=== PATIENT | male | born 1995 | race Caucasian/White ===

== ENCOUNTER 2018-12-08 18:51 | Emergency (ER) | payer OTHER, SELFPAY ==
--- NOTE | 2018-12-08 19:19 | RAD ---
RIGHT ARM TWO VIEWS: History: Mower fell on right arm. Comparison: None. FINDINGS: No fracture. No cortical irregularity or periosteal reaction. IMPRESSION: No fracture. POS: PPP
[2018-12-08] MEDS ORDERED: Ibuprofen 800 MG TAB ONE (19:31)
[2018-12-08] MEDS ORDERED: Acetaminophen 500 MG TAB ONE (19:32)
== END 2018-12-08 19:40 | disposition home or self-care (01) ==
LOC: MADERS 18:51
DX: S50.11XA Contusion of right forearm, initial encounter (principal); W20.8XXA Other cause of strike by thrown, projected or falling object, initial encounter

== ENCOUNTER 2021-09-11 08:28 | Emergency (ER) | payer OTHER, SELFPAY ==
[2021-09-12 15:08] LABS: SARS-CoV-2 PCR by NAA Not Detected (NotDetected)
== END 2021-09-11 08:49 | disposition home or self-care (01) ==
LOC: MADERS 08:28
DX: J06.9 Acute upper respiratory infection, unspecified (principal); Z20.822 Contact with and (suspected) exposure to COVID-19; F17.210 Nicotine dependence, cigarettes, uncomplicated
CPT/HCPCS: 99283; U0003; U0005

== ENCOUNTER 2022-10-31 20:58 | Emergency (ER) | payer SELFPAY | END 2022-10-31 22:49 | disposition home or self-care (01) | LOC: MADERS 20:58 | DX: J01.90 Acute sinusitis, unspecified (principal); F17.210 Nicotine dependence, cigarettes, uncomplicated | CPT/HCPCS: 99283 ==

== ENCOUNTER 2022-11-01 07:17 | Emergency (ER) | payer SELFPAY ==
[2022-11-01] MEDS ORDERED: Ketorolac Tromethamine 30 MG/ML VIAL ONE (07:48)
[2022-11-01 08:03] LABS: #Basophils 0.1 thou/uL (0.0-0.2); #Eosinphils 0.2 thou/uL (0.0-0.7); #Lymphocytes 2.3 thou/uL (1.20-3.40); #Monocytes 1.2 thou/uL (0.11-0.59); #Neutrophils 7.8 thou/uL (1.40-6.50); %Basophils 0.7 % (0.0-1.0); %Lymphocytes 19.8 % (21.0-51.0); %Neutrophils 67.5 % (42.0-75.0); Hemoglobin 14.7 g/dL (14.0-18.0); Mean Corpuscular Hemoglobin 30.3 pg (27.0-31.0); Mean Corpuscular Volume 84.1 fl (78.0-98.0); Mean Platelet Volume 6.7 fL (7.4-10.4); Platelet Count 278 10x3/uL (130-400); RBC Distribution Width 10.5 % (11.5-14.5); Red Blood Cell (RBC) Count 4.86 mill/uL (4.70-6.10); White Blood Cell (WBC) Count 11.5 10x3/uL (4.8-10.8)
[2022-11-01 08:16] LABS: ALT (SGPT) 62 U/L (8-55); AST (SGOT) 50 U/L (5-34); Albumin 4.5 g/dL (3.5-5.0); Alkaline Phosphatase 70 U/L (40-110); Anion Gap 15 mmol/L (10-20); BUN (Urea Nitrogen) 12 mg/dL (8.9-20.6); Bilirubin, Total 0.6 mg/dL (0.2-1.2); Calc. Creatinine Clearance 0 mL/min (70-130); Calcium 9.1 mg/dL (7.8-10.44); Carbon Dioxide 22 mmol/L (22-29); Chloride 108 mmol/L (98-107); Estimated GFR 102; Globulin 2.5 g/dL (2.4-3.5); Glucose 131 mg/dL (70-105); Potassium 3.8 mmol/L (3.5-5.1); Sodium 141 mmol/L (136-145)
[2022-11-01] MEDS ORDERED: predniSONE 20 MG TAB ONE (10:31)
[2022-11-01] MEDS ORDERED: diphenhydrAMINE 25 MG CAP ONE (10:31)
[2022-11-01] MEDS ORDERED: Famotidine 20 MG TAB ONE (10:31)
== END 2022-11-01 10:59 | disposition home or self-care (01) ==
LOC: MADERS 07:17
DX: T78.40XA Allergy, unspecified, initial encounter (principal); J06.9 Acute upper respiratory infection, unspecified; D72.829 Elevated white blood cell count, unspecified; F17.210 Nicotine dependence, cigarettes, uncomplicated
CPT/HCPCS: 70360; 70491; 80053; 85025; 87040; 96374; J1885; J7512